=== PATIENT | female | born 1980 | race Caucasian/White ===

== ENCOUNTER 2016-08-17 13:03 | Inpatient (IN) | payer OTHER ==
[~2016-08-17] VITALS: Ht 160 cm; Wt 53.1 kg
[2016-08-17 14:00] VITALS: BP 104/74
[2016-08-17 14:37] LABS: BASO % 0.7 % (0.0-1.0); EOS # 0.1 10*3/uL (0.0-0.4); EOS % 1.9 % (1.0-4.0); HEMATOCRIT 40.5 % (37.0-47.0); HEMOGLOBIN 13.6 g/dl (12.0-16.0); LYMPH % 34.5 % (27.0-41.0); MEAN CELL VOLUME 86.2 fl (81.0-99.0); MEAN CORPUSCULAR HGB 28.9 pg (27.0-31.0); MEAN CORPUSCULAR HGB CONC 33.6 g/dl (33.0-37.0); MEAN PLATELET VOLUME 9.3 fl (9.6-12.3); MONO # 0.5 10*3/uL (0.1-1.0); MONO % 7.9 % (3.0-9.0); NEUT # 3.2 10*3/uL (2.3-7.9); NEUT % 54.5 % (47.0-73.0); PLATELET COUNT AUTOMATED 228 10*3/uL (130-400); RED CELL DISTRI WIDTH 12.6 % (0-14.5); WHITE BLOOD COUNT 5.8 10*3/uL (4.8-10.8)
[2016-08-17 14:48] LABS: PROTHROMBIN TIME 10.9 SECONDS (9.0-12.4)
[2016-08-17 14:52] LABS: ALBUMIN 3.4 gm/dl (3.1-4.5); ALKALINE PHOSPHATASE 73 U/L (45-117); BILIRUBIN, TOTAL 0.3 mg/dl (0.2-1.0); BUN 9 mg/dl (7-24); CARBON DIOXIDE 30 mmol/L (21-32); CHLORIDE 105 mmol/L (98-107); EST GLOM FILT AFRICAN AMERICAN > 60 ml/min; GLUCOSE 91 mg/dL (65-99); POTASSIUM 3.3 mmol/L (3.5-5.1); SGOT/AST 16 IU/L (3-35); SGPT/ALT 18 U/L (12-78); SODIUM 143 mmol/L (136-145); TOTAL PROTEIN 6.1 gm/dL (6.4-8.2)
[2016-08-17 15:07] LABS: BILIRUBIN NEGATIVE (NEGATIVE); BLOOD 2+ (NEGATIVE); CLARITY CLOUDY (CLEAR); COLOR YELLOW (YELLOW); GLUCOSE NEGATIVE (NEGATIVE); KETONE NEGATIVE (NEGATIVE); LEUKO ESTERASE 1+ (NEGATIVE); NITRITE POSITIVE (NEGATIVE); PROTEIN NEGATIVE (NEGATIVE)
[2016-08-17 15:18] LABS: BACTERIA 3+; URINE REFLEX COMMENT YES (NO)
[2016-08-17 15:22] LABS: URINE AMPHETAMINES < 1000 (1000ng/ml); URINE BARBITURATES < 200 (200ng/ml); URINE COCAINE > 300 (300ng/ml)
[2016-08-17 16:00] VITALS: BP 95/65
[2016-08-17] MEDS ORDERED: LINZESS290 MC1 PO (19:14)
[2016-08-17] MEDS ORDERED: FETZIMA80 M1 PO (19:15)
[2016-08-17] MEDS ORDERED: DOXEPIN25 MG PO (19:16)
[2016-08-17 21:22] VITALS: BP 90/60
[2016-08-18] VITALS: BP 91/65
[2016-08-18 04:00] VITALS: BP 86/59
[2016-08-18 08:00] VITALS: BP 98/68
[2016-08-18 12:00] VITALS: BP 96/75
[2016-08-18 16:00] VITALS: BP 112/48
[2016-08-18 20:00] VITALS: BP 103/53
[2016-08-19] VITALS: BP 108/68
[2016-08-19 08:00] VITALS: BP 107/78
[2016-08-19 12:00] VITALS: BP 105/77
[2016-08-19 16:00] VITALS: BP 102/68
[2016-08-19 20:00] VITALS: BP 84/62; BP 90/58
[2016-08-20] VITALS: BP 81/57
[2016-08-20 04:00] VITALS: BP 90/44
[2016-08-20 05:58] LABS: BASO % 0.8 % (0.0-1.0); EOS # 0.1 10*3/uL (0.0-0.4); EOS % 1.2 % (1.0-4.0); HEMATOCRIT 41.3 % (37.0-47.0); HEMOGLOBIN 13.8 g/dl (12.0-16.0); LYMPH % 40.7 % (27.0-41.0); MEAN CELL VOLUME 86.2 fl (81.0-99.0); MEAN CORPUSCULAR HGB 28.8 pg (27.0-31.0); MEAN CORPUSCULAR HGB CONC 33.4 g/dl (33.0-37.0); MEAN PLATELET VOLUME 9.3 fl (9.6-12.3); MONO # 0.4 10*3/uL (0.1-1.0); MONO % 7.3 % (3.0-9.0); NEUT # 2.4 10*3/uL (2.3-7.9); NEUT % 49.6 % (47.0-73.0); PLATELET COUNT AUTOMATED 216 10*3/uL (130-400); RED BLOOD COUNT 4.79 10*6/uL (4.10-5.10); RED CELL DISTRI WIDTH 12.4 % (0-14.5); WHITE BLOOD COUNT 4.8 10*3/uL (4.8-10.8)
[2016-08-20 06:11] LABS: EST GLOM FILT AFRICAN AMERICAN > 60 ml/min
[2016-08-20 08:00] VITALS: BP 91/56
[2016-08-20] MEDS ORDERED: ATARAX,VISTARIL50 MG PO (11:50)
[2016-08-20] MEDS ORDERED: ZOFRAN4 MG PO (11:50)
[2016-08-20 12:00] VITALS: BP 112/72
== END 2016-08-20 15:07 | disposition home or self-care (01) | DRG 896 ==
LOC: 5E 13:03
PROVIDERS: Internal Medicine
DX: F11.23 Opioid dependence with withdrawal (principal); E43 Unspecified severe protein-calorie malnutrition; N39.0 Urinary tract infection, site not specified; K58.9 Irritable bowel syndrome, unspecified; F14.10 Cocaine abuse, uncomplicated; E87.6 Hypokalemia; F17.200 Nicotine dependence, unspecified, uncomplicated; F32.9 Major depressive disorder, single episode, unspecified; F41.9 Anxiety disorder, unspecified; Z82.49 Family history of ischemic heart disease and other diseases of the circulatory system; Z71.6 Tobacco abuse counseling; Z88.0 Allergy status to penicillin; Z79.899 Other long term (current) drug therapy; Z68.20 Body mass index [BMI] 20.0-20.9, adult